=== PATIENT | female | born 1990 | race Caucasian/White ===

== ENCOUNTER 2018-05-26 12:45 | Inpatient (IN) | payer MEDICAID ==
[2018-05-26] MEDS ORDERED: Sodium Chloride 0.9% 1,000 ML IV ONE (13:24)
--- NOTE | 2018-05-26 13:31 | ED Physician Chart ---
ED Chief Complaint/HPI - Patient Information Date Seen:: 05/26/18 Time Seen:: 13:00 Chief Complaint:: Dizziness History of Present Illness:: onset x 3 days of weakness and dizziness; pt denies trauma, LOC, ALOC, AMS, H/As , visual or gait changes, neck pain, C/P, SOB, Abd. Pain, A/N/V/D/C, fever, chills, or urinary s/s Allergies:: Allergies Allergy/AdvReac Type Severity Reaction Status Date / Time codeine Allergy Verified 05/26/18 13:08 Vitals:: Vital Signs - 8 hr 05/26/18 05/26/18 12:58 13:15 Temp 98.6 F 97.9 F HR 95 101 RR 16 17 BP 111/67 132/69 O2 Sat % 100 100 Historian:: Patient Review:: Nurse's Note Reviewed, Old Chart Reviewed ED Review of Systems - Review of Systems General/Constitutional: No fever, No chills, No weight loss, No weakness, No diaphoresis, No edema, No loss of appetite Skin: No skin lesions, No rash, No bruising Head: No headache, No light-headedness Eyes: No loss of vision, No pain, No diplopia ENT: No earache, No nasal drainage, No sore throat, No tinnitus Neck: No neck pain, No swelling, No thyromegaly, No stiffness, No mass noted Cardio Vascular: No chest pain, No palpitations, No PND, No orthopnea, No edema Pulmonary: No SOB, No cough, No sputum, No wheezing GI: No nausea, No vomiting, No diarrhea, No pain, No melena, No hematochezia, No constipation, No hematemesis G/U: No dysuria, No frequency, No hematuria, No nacturia Leasing Professional: No vaginal discharge, No abnormal vaginal bleed, No contraction Musculoskeletal: No bone or joint pain, No back pain, No muscle pain Endocrine: No polyuria, No polydipsia Psychiatric: No prior psych history, No depression, No anxiety, No suicidal ideation, No homicidal ideation, No auditory hallucination, No visual hallucination Hematopoietic: No bruising, No lymphadenopathy Allergic/Immuno: No urticaria, No angioedema Neurological: No syncope, No focal symptoms, Weakness, No paresthesia, No headache, No seizure, Dizziness, No confusion, Vertigo ED Past Medical History - Past Medical History Obtainable: Yes Past Medical History: HTN, Asthma/COPD, Dyslipidemia Family History: HTN Social History: Non Smoker, No Alcohol, No Drug Use, Single, Care Facility Surgical History: None Psychiatricy History: None Medication: Reviewed Family Medical History - Family Member Mother History Unknown: Yes ED Physical Exam - Physical Examination General/Constitutional: Awake, Well-developed, well-nourished, Alert, No distress, GCS 15, Non-toxic appearing, Ambulatory Head: Atraumatic Eyes: Lids, conjuctiva normal, PERRL, EOMI Skin: Nl inspection, No rash, No skin lesions, No ecchymosis, Well hydrated, No lymphadenopathy ENMT: External ears, nose nl, TM canals nl, Nasal exam nl, Lips, teeth, gums nl , Oropharynx nl, Tonsils nl Neck: Nontender, Full ROM w/o pain, No JVD, No nuchal rigidity, No bruit, No mass, No stridor Respiratory: Nl effort/Exclusion, Clear to Auscultation, No Wheeze/Rhonchi/Rales Cardio Vascular: RRR, No murmur, gallop, rubs, NL S1 S2, Carotid/Femoral/Distal pulses equal bilaterally GI: No tenderness/rebounding/guarding, No organomegaly, No hernia, Normal BS's, Nondistended, No mass/bruits, No McBurney tenderness : No CVA tenderness Extremities: No tenderness or effusion, Full ROM, normal strength in all extremities, No edema, Normal digits & nails Neuro/Psych: Alert/oriented, DTR's symmetric, Normal sensory exam, Normal motor strength, Judgement/insight normal, Mood normal, Normal gait, No focal deficits Misc: Normal back, No paraspinal tenderness ED Labs/Radiology/EKG Results - Lab Results Comments:: Reviewed - EKG Interpretations EKG Time:: 13:40 Rate & Rhythm: 98; NSR Comments:: non-specific st-t changes ED Septic Shock - . Is Septic Shock (SBP<90, OR Lactate>4 mmol\L) present?: No - <6hrs of presentation: Vital Signs: Vital Signs - 8 hr 05/26/18 05/26/18 12:58 13:15 Temp 98.6 F 97.9 F HR 95 101 RR 16 17 BP 111/67 132/69 O2 Sat % 100 100 ED Reassessment (Disposition) - Reassessment Reassessment Condition:: Improved - Diagnosis Diagnosis:: Weakness; Dizziness; Vertigo; Anemia; UTI; Urosepsis - Aftercare/Follow up Instructions Aftercare/Follow-Up Instructions:: Counseled pt regarding lab results/diagnosis & need follow up, Counseled pt & family regarding lab results/diagnosis & need follow up - Patient Disposition Discharge/Transfer:: Acute Care w/in this hosp Accepting Physician:: Dr. Nieto Time Called:: 1445 Time Responded:: 14:45 Admitted to:: Telemetry Spoke to:: Dr. Nieto Admitting Medical Physician:: Dr. Nieto Condition at Disposition:: Stable, Improved
[2018-05-26 13:43] LABS: URINE SOURCE CLEAN C
[2018-05-26 13:44] LABS: URINE BILIRUBIN NEGATIVE (NEGATIVE); URINE BLOOD NEGATIVE (NEGATIVE); URINE GLUCOSE (UA) NEGATIVE (NEGATIVE); URINE KETONE NEGATIVE (NEGATIVE); URINE LEUKOCYTE ESTERASE TRACE (NEGATIVE); URINE MICROSCOPIC INDICATED? YES; URINE NITRATE POSITIVE (NEGATIVE); URINE PH 5.5 (4.6 - 8.0); URINE PROTEIN NEGATIVE (NEGATIVE); URINE UROBILINOGEN 0.2 E.U./dL (0.2 - 1.0)
[2018-05-26 13:53] LABS: % BASOPHILS 0.5 % (0.0-2.0); % EOSINOPHILS 1.8 % (0.0-5.0); % LYMPHOCYTES 26.2 % (20.0-50.0); % MONOCYTES 4.4 % (2.0-10.0); % NEUTROPHILS 67.1 % (40.0-80.0); EOSINOPHILE ABSOLUTE 0.1 Th/cmm (0.1-0.4); HEMATOCRIT 23.3 % (41.0-60); LYMPHOCYTE ABSOLUTE 1.9 Th/cmm (1.5-3.0); MEAN CORPUSCULAR HEMOGLOBIN 17.4 pg (27.0-31.0); MEAN CORPUSCULAR HGB CONC 30.2 pg (28.0-36.0); MEAN PLATELET VOLUME 7.9 fl; MONOCYTE ABSOLUTE 0.3 Th/cmm (0.3-1.0); NEUTROPHILE ABSOLUTE 4.8 Th/cmm (1.8-8.0); PLATELET COUNT 526 Th/cmm (150-400); RED BLOOD COUNT 4.03 Mil/cmm (3.80-5.10); WHITE BLOOD COUNT 7.1 Th/cmm (4.8-10.8)
[2018-05-26 13:59] LABS: INR 0.92 (0.5-1.4); PROTHROMBIN TIME (TEST) 9.6 SECONDS (9.5-11.5)
[2018-05-26 14:03] LABS: ALB/GLOB RATIO 1.3 (1.0-1.8); ALBUMIN 3.9 gm/dL (3.7-5.3); ALKALINE PHOSPHATASE 58 U/L (34-104); AMYLASE SERUM 41 U/L (29-103); ANION GAP 12.5 (7.0-16.0); BILIRUBIN,TOTAL 0.3 mg/dL (0.3-1.0); BUN - UREA NITROGEN 12 mg/dL (7-25); CALCIUM SERUM 9.5 mg/dL (8.6-10.3); CARBON DIOXIDE 21.2 mEq/L (21.0-31.0); CHLORIDE 107 mEq/L (98-107); CHOLESTEROL 170 mg/dL (<200); CREATININE - SERUM 0.7 mg/dL (0.6-1.2); CREATININE KINASE 44 U/L (30-223); GFR AFRICAN-AMERICAN > 60.0 ml/min (>90); GFR NON AFRICAN-AMERICAN > 60.0 ml/min; GLUCOSE 83 mg/dL (70-105); HDL -HIGH DENSITY LIPOPROTEIN 47 mg/dL (23-92); LIPASE 11 U/L (11-82); POTASSIUM SERUM 3.7 mEq/L (3.5-5.1); SGOT 10 U/L (13-39); SGPT/ALT 10 U/L (7-52); SODIUM SERUM 137 mEq/L (136-145); TRIGLYCERIDES 87 mg/dL (<150)
[2018-05-26 15:02] LABS: URINE CLARITY CLOUDY (CLEAR); URINE COLOR YELLOW
[2018-05-26 15:03] LABS: URINE BACTERIA 4+ /hpf (NONE SEEN); URINE EPITHELIAL CELLS MANY /lpf (FEW); URINE RBC NONE SEEN /hpf (0-5)
[2018-05-26 15:11] LABS: MEAN CELL VOLUME 57.7 fl (81-100)
[2018-05-26] MEDS ORDERED: cefTRIAXone 1 GM in Sodium Chloride 0.9% 50 ML IV ONE (16:28)
[2018-05-26 20:32] VITALS: BP 134/87
--- NOTE | 2018-05-27 08:20 | History and Physical ---
History of Present Illness - HPI Chief Complaint: weakness, dizziness x3 days HPI: 27y/o female presents to [facility] for weakness and fatigue for the past 3 days. Patient has a history of iron deficiency anemia. unable to tolerate iron supplementation. Patient was typed and screen for one unit of packed RBC's. History of HTN, Asthma, Heart murmur, eczema, depression. While in the ER patient had initial labwork done which revealed the following... WBC 7.1 H/H 7.0/23.3 platelets 526 PT/INR 9.6/0.92 Na 137 K 3.7 Bun/Cr 12/0.7 Glu 83 UA cloudy Nitrate pos Leuko trace WBC 6-10 Bact 4+ Patient was transfused one unit of packed RBC's and was subsequently admitted for further evaluation and treatment. Vital Signs: Last Vital Signs Temp 98.3 F 05/27/18 08:05 Pulse 103 05/27/18 08:05 Resp 19 05/27/18 08:05 BP 124/62 05/27/18 08:05 Pulse Ox 96 05/27/18 08:05 Past Medical History Cardiovascular: Report: HTN Pulmonary: Report: Asthma GENERAL OFFICE DISPATCHER: Report: Other (heart murmur) GI: Report: No Pertinent Hx Psych: Report: Depression Musculoskeletal: Report: No Pertinent Hx Rheumatologic: Report: No pertinent Hx Infectious Disease: Report: No Pertinent Hx Renal/: Report: No Pertinent Hx Endocrine: Report: No Pertinent Hx Dermatology: Report: Eczema - Past Surgical History Past Surgical History: No pertinent Hx Family Medical History - Family Member Mother History Unknown: Yes Social History Smoke: No Alcohol: None Drugs: None Lives: With Family - Medications Home Medications: Home Medication Medication Instructions Recorded Type Albuterol Nebulizer 2.5mg/3mL 1 vial HHN Q4H PRN 05/26/18 History [Albuterol Neb UD*] Amlodipine Besylate 5 mg PO DAILY 05/26/18 History Atorvastatin Calcium [Lipitor] 10 mg PO DAILY 05/26/18 History Cetirizine HCl [Allergy Relief] 10 mg PO DAILY 05/26/18 History Escitalopram Oxalate [Lexapro] 10 mg PO DAILY 05/26/18 History Fluticasone Furoate [Arnuity 50 mcg INH DAILY 05/26/18 History Ellipta] Fluticasone/Vilanterol [Breo 1 each IH BID 05/26/18 History Ellipta 200-25 Mcg INH] Loratadine [Claritin] 10 mg PO DAILY 05/26/18 History Losartan Potassium [Cozaar] 50 mg PO BID 05/26/18 History Mometasone/Formoterol [Dulera 200 2 puff INH BID PRN 05/26/18 History Mcg/5 Mcg Inhaler] Montelukast [Singulair] 10 mg PO DAILY 05/26/18 History Tiotropium Paicines [Spiriva] 18 mcg INH BID 05/26/18 History - Allergies Allergies/Adverse Reactions: Allergies Allergy/AdvReac Type Severity Reaction Status Date / Time codeine Allergy Verified 05/26/18 13:08 Review of Systems - Review of Systems Constitutional: Report: No Significant Eyes: Report: No Significant ENT: Report: No Significant Respiratory: Report: No Significant Cardiovascular: Report: No Significant Gastrointestinal: Report: No Significant Genitourinary: Report: No Significant Musculoskeletal: Report: No Significant Skin: Report: No Significant Neurological: Report: No Significant Physical Exam - Physical Exam HEENT: Report: Ears Nose Throat within normal limits, Pharnyx within normal limits Neck: Report: Within normal limits Cardiovascular Systems: Report: +s1/s2 noted, Regular, Rate and Rhythm Respiratory: Report: Breath Sounds are within normal limits Abdomen: Report: Non-tender to palpation Back: Report: Inspection of back is within normal limits. Extremities: Report: Non-tender to palpation. Skin: Report: Color of skin is within normal limits Neuro/Psych: Report: Mood affect is within normal limits, A+Ox3 - Lab Results All Lab Results last 24 hours: Laboratory Results - last 24 hr 05/26/18 05/26/18 05/26/18 13:38 13:38 13:38 WBC 7.1 RBC 4.03 Hgb 7.0 L* Hct 23.3 L MCV 57.7 L MCH 17.4 L MCHC Differential 30.2 RDW 19.0 Plt Count 526 H MPV 7.9 Neutrophils % 67.1 Lymphocytes % 26.2 Monocytes % 4.4 Eosinophils % 1.8 Basophils % 0.5 PT 9.6 INR 0.92 Sodium 137 Potassium 3.7 Chloride 107 Carbon Dioxide 21.2 Anion Gap 12.5 BUN 12 Creatinine 0.7 Est GFR ( Amer) > 60.0 Est GFR (Non-Af Amer) > 60.0 BUN/Creatinine Ratio 17.1 Glucose 83 Calcium 9.5 Total Bilirubin 0.3 AST 10 L ALT 10 Alkaline Phosphatase 58 Creatine Kinase 44 Troponin I Total Protein 7.0 Albumin 3.9 Globulin 3.1 Albumin/Globulin Ratio 1.3 Triglycerides 87 Cholesterol 170 LDL Cholesterol Direct 111 HDL Cholesterol 47 Amylase 41 Lipase 11 Serum , Qual Urine Source Urine Color Urine Clarity Urine pH Ur Specific [place] Urine Protein Urine Glucose (UA) Urine Ketones Urine Blood Urine Nitrate Urine Bilirubin Urine Urobilinogen Ur Leukocyte Esterase Urine RBC Urine WBC Ur Epithelial Cells Urine Bacteria Urine Test Blood Type Antibody Screen Crossmatch 05/26/18 05/26/18 05/26/18 13:38 13:38 13:39 WBC RBC Hgb Hct MCV MCH MCHC Differential RDW Plt Count MPV Neutrophils % Lymphocytes % Monocytes % Eosinophils % Basophils % PT INR Sodium Potassium Chloride Carbon Dioxide Anion Gap BUN Creatinine Est GFR ( Amer) Est GFR (Non-Af Amer) BUN/Creatinine Ratio Glucose Calcium Total Bilirubin AST ALT Alkaline Phosphatase Creatine Kinase Troponin I < 0.01 L Total Protein Albumin Globulin Albumin/Globulin Ratio Triglycerides Cholesterol LDL Cholesterol Direct HDL Cholesterol Amylase Lipase Serum , Qual NEGATIVE Urine Source CLEAN C Urine Color YELLOW Urine Clarity CLOUDY H Urine pH 5.5 Ur Specific [place] >= 1.030 Urine Protein NEGATIVE Urine Glucose (UA) NEGATIVE Urine Ketones NEGATIVE Urine Blood NEGATIVE Urine Nitrate POSITIVE H Urine Bilirubin NEGATIVE Urine Urobilinogen 0.2 Ur Leukocyte Esterase TRACE H Urine RBC NONE SEEN Urine WBC 6-10 H Ur Epithelial Cells MANY Urine Bacteria 4+ H Urine Test Blood Type Antibody Screen Crossmatch 05/26/18 05/26/18 13:39 19:40 WBC RBC Hgb Hct MCV MCH MCHC Differential RDW Plt Count MPV Neutrophils % Lymphocytes % Monocytes % Eosinophils % Basophils % PT INR Sodium Potassium Chloride Carbon Dioxide Anion Gap BUN Creatinine Est GFR ( Amer) Est GFR (Non-Af Amer) BUN/Creatinine Ratio Glucose Calcium Total Bilirubin AST ALT Alkaline Phosphatase Creatine Kinase Troponin I Total Protein Albumin Globulin Albumin/Globulin Ratio Triglycerides Cholesterol LDL Cholesterol Direct HDL Cholesterol Amylase Lipase Serum , Qual Urine Source Urine Color Urine Clarity Urine pH Ur Specific [place] Urine Protein Urine Glucose (UA) Urine Ketones Urine Blood Urine Nitrate Urine Bilirubin Urine Urobilinogen Ur Leukocyte Esterase Urine RBC Urine WBC Ur Epithelial Cells Urine Bacteria Urine Test NEGATIVE Blood Type A NEGATIVE Antibody Screen NEGATIVE Crossmatch See Detail - Assessment Assessment: Current Active Problems Problem Status Onset DIZZY WITH LOW HB Acute weakness and fatigue h/o iron deficiency anemia UTI HTN asthma cardiac murmur eczema depression - Plan Plan: will order one unit of packed RBC's. repeat CBC for tomorrow. will order Hem/Onc consult continue home meds add Augmentin PO for UTI
[2018-05-27] MEDS ORDERED: MOMETASONE INH PRN (08:24)
[2018-05-27] MEDS ORDERED: FORMOTEROL INH PRN (08:24)
[2018-05-27] MEDS ORDERED: Fluticasone Propionate Nasal 1 SPR SPR NS SCH (09:00)
[2018-05-27] MEDS ORDERED: Albuterol Nebulizer 2.5mg/3mL HHN PRN (09:00)
[2018-05-27] MEDS ORDERED: Amoxicillin/Clavulanate 500/125 Tab PO SCH (09:00)
[2018-05-27] MEDS ORDERED: Non-Formulary Item 1 EA (Fluticasone/Vilanterol [Breo Ellipta 200-25 Mcg Inh] 1 EACH) IH SCH (09:00)
[2018-05-27] MEDS ORDERED: Atorvastatin Calcium 10 MG TAB PO SCH (09:00)
[2018-05-27] MEDS: Ipratropium Neb 0.5 mg/2.5 mL UD HHN SCH ×2 (11:00→14:32)
[2018-05-27 12:14] LABS: RED BLOOD COUNT 4.21 Mil/cmm (3.80-5.10)
[2018-05-27 12:16] LABS: HEMATOCRIT 26.7 % (41.0-60); HEMOGLOBIN 7.7 gm/dL (12-16)
[2018-05-27 12:17] LABS: MEAN CELL VOLUME 63.4 fl (81-100); MEAN CORPUSCULAR HEMOGLOBIN 18.4 pg (27.0-31.0); MEAN PLATELET VOLUME 8.2 fl; PLATELET COUNT 439 Th/cmm (150-400); RED CELL DISTRIBUTION WIDTH 23.6 % (11.5-20.0)
[2018-05-27 12:18] LABS: BAND NEUTROPHILE 0 % (0-10); BASOPHIL 0.5 % (0-3); EOSINOPHIL 2.6 % (0-5); LYMPHOCYTE 18.7 % (20-50); MONOCYTE 6.5 % (2-10); NEUTROPHILS 71.7 % (40-80)
[2018-05-27 12:19] LABS: ANISOCYTOSIS 2+; OVALOCYTES 1+; POIKILOCYTOSIS 1+
[2018-05-27 12:20] LABS: PLATELET ESTIMATE INCREASED PLATELETS (NORMAL); TARGET CELLS 1+
== END 2018-05-27 15:46 | disposition home or self-care (01) | DRG 463 ==
LOC: ER 12:45 → TELE 18:30
PROVIDERS: ADMIT Family Medicine; ATTEND Family Medicine
PROC: 30233N1 Transfusion of Nonautologous Red Blood Cells into Peripheral Vein, Percutaneous Approach (ICD-10-PCS; principal; 2018-05-27)
DX: N39.0 Urinary tract infection, site not specified (principal); D50.9 Iron deficiency anemia, unspecified; I10 Essential (primary) hypertension; R01.1 Cardiac murmur, unspecified; L30.9 Dermatitis, unspecified; F32.9 Major depressive disorder, single episode, unspecified; J44.9 Chronic obstructive pulmonary disease, unspecified; E78.5 Hyperlipidemia, unspecified; D64.9 Anemia, unspecified
CPT/HCPCS: 36415-UA; 80053-TC; 80061-TC; 81001-TC; 81025-TC; 82150-TC; 82270-TC; 82550-TC; 83690-TC; 83880-TC; 84484-TC; 84703-TC; 85007-TC; 85025-TC; 85610-TC; 86850-TC; 86900-TC; 86901-TC; 86922-TC; 87086-90; 90779; 93005; 94760; 96375; C9113; J0696; J7030; J7040; P9016; Z7610